=== PATIENT | male | born 1955 | race Caucasian/White ===

== ENCOUNTER 2018-05-14 07:47 | Outpatient (CLI) | payer BC ==
[2018-05-14 08:14] LABS: Estimated GFR-MDRD - POC Greater than 90
--- NOTE | 2018-05-14 09:53 | CT ---
CT ABDOMEN AND PELVIS WITH AND WITHOUT IV CONTRAST: 05/14/18 HISTORY: Recently diagnosed prostate cancer, abnormal labs. FINDINGS: There are no previous exams for comparison. The lung bases are unremarkable. There are postop changes of gastric banding. Calcified granulomas ar e seen in the liver and spleen. No hepatic mass or abnormal biliary ductal dilatation is seen. No lacey cified gallstones are noted. The pancreas and adrenal glands are normal. No calculi seen in the kidneys, ureters, or urinary bladder. No hydroureteronephrosis is noted on eit her side. Small low density lesion in the superior pole of the left kidney is most likely a cyst. No enhancing renal mass is seen on this side. Normal contrast excretion through the ureters and urinary bladder on the delayed image. The prostate is mildly enlarged. No free air, free fluid, or lymphadenopathy is seen in the abdomen or pelvis. No aneurysmal dilatatio n of the abdominal aorta is identified. There are degenerative changes in the spine. The spleen measu res 13.0 cm in length. IMPRESSION: 1. Liver and spleen granulomas. 2. Borderline splenomegaly. 3. Tiny left renal cyst. 4. No CT evidence for urinary tract calculi/obstruction or enhancing renal mass. 5. Mild prostatic enlargement. POS: [facility]
[2018-05-14] MEDS ORDERED: Iopamidol 370 76% 100 ML VIAL ONE (12:55)
--- NOTE | 2018-05-14 14:19 | NM ---
RADIONUCLIDE BONE SCAN: History: Prostate cancer. Initial staging. FINDINGS: Heterogeneous uptake throughout the skeleton. Heterogeneously increased uptake at the left knee and e ach foot and acromioclavicular joint. IMPRESSION: Arthritic changes as described above. No scintigraphic evidence of skeletal metastases. POS: [facility]
== END 2018-05-14 07:48 | disposition home or self-care (01) ==
LOC: CT 07:47
PROVIDERS: ATTEND Urology
DX: C61 Malignant neoplasm of prostate (principal); K75.3 Granulomatous hepatitis, not elsewhere classified; N28.1 Cyst of kidney, acquired; N40.0 Benign prostatic hyperplasia without lower urinary tract symptoms; M19.90 Unspecified osteoarthritis, unspecified site; D73.89 Other diseases of spleen
CPT/HCPCS: 74178; 78306; 82565; A9503

== ENCOUNTER 2018-08-27 10:44 | Outpatient (CLI) | payer BC ==
--- NOTE | 2018-08-27 13:39 | RAD ---
TWO VIEWS OF THE LEFT HIP: DATE: 08/27/2018. COMPARISON: None. HISTORY: Pain. FINDINGS: There is mild superior joint space narrowing. There is mild acetabular osteophyte formation seen lat erally on the left. There is no displaced fracture or evidence of dislocation seen. IMPRESSION: No acute osseous abnormality. POS: [facility]
== END 2018-08-27 10:45 | disposition home or self-care (01) ==
LOC: BICRAD 10:44
PROVIDERS: ATTEND Family Medicine
DX: M25.552 Pain in left hip (principal)

== ENCOUNTER 2018-09-07 09:35 | Outpatient (CLI) | payer BC ==
--- NOTE | 2018-09-07 12:38 | CT ---
CT ABDOMEN AND PELVIS PERFORMED WITH AND WITHOUT CONTRAST ENHANCEMENT: HISTORY: Prostate cancer. History of right inguinal and leg pain since radical prostatectomy done in [facility]. Also problems with incontinence. COMPARISON: CT examination from 05/14/2018. FINDINGS: ABDOMEN: The lung bases are clear of any infiltrative process. The liver and spleen are within normal limits in size. Calcified splenic granulomas are noted. The pancreas and gallbladder regions are unremarkable. A gastric band is present. There is some distal esophageal wall thickening present. The right and left adrenal glands and the right and left kidneys are normal in size. No renal calcul i. No masses. No obstruction. There is no significant periaortic or mesenteric adenopathy. PELVIS: Since our prior examination, prostatectomy changes are now noted. The bladder wall appears slightly thickened. The bladder is not fully distended at the time of this examination. Some minima l fat stranding is present. On the left side of the pelvis, located just medial to the external timbo c artery and vein, as they pass along the anterior acetabulum, is a 3.1 cm fluid density collection. It is also intimately related to the sigmoid colon at this level, but I do not believe it is of colo oz origin. There are some minimal diverticular changes if the sigmoid colon present. This fluid de nsity collection does not show any enhancement, and it is probably a postoperative collection, possib ly some type of small lymphocele or other type of postop collection. Review of osseous structures shows arthritic changes of the spine and hips. IMPRESSION: 1. Postoperative prostatectomy change. 2. Gastric band. There is distal esophageal wall thickening associated with this. 3. A 3.1 cm fluid density collection, which is seen on the left side of the pelvis. This is directl y medial to the left internal iliac vein and artery as they cross over the anterior acetabulum, near the proximal end of the inguinal canal, but this is within the pelvis itself. It also touches the si gmoid colon in this region, and I suspect this is a postoperative fluid collection, possibly a small lymphocele. 4. There is minimal sigmoid diverticulosis. 5. Bladder wall thickening. POS: [facility]
[2018-09-07] MEDS ORDERED: ISOVUE-370 76%-LOCM 1 ML ONE (16:16)
== END 2018-09-07 09:36 | disposition home or self-care (01) ==
LOC: BICCT 09:35
PROVIDERS: ATTEND Urology
DX: M79.604 Pain in right leg (principal); K57.30 Diverticulosis of large intestine without perforation or abscess without bleeding; K22.8 Other specified diseases of esophagus; N32.89 Other specified disorders of bladder; Z90.79 Acquired absence of other genital organ(s)
CPT/HCPCS: 74178; 82565

== ENCOUNTER 2022-01-13 08:59 | Outpatient (CLI) | payer MEDICARE | END 2022-01-13 09:00 | disposition home or self-care (01) | LOC: BICRAD 08:59 | PROVIDERS: ATTEND Family Medicine | DX: M54.50 Low back pain, unspecified (principal); M47.815 Spondylosis without myelopathy or radiculopathy, thoracolumbar region; M41.9 Scoliosis, unspecified | CPT/HCPCS: 72080 ==

== ENCOUNTER 2022-01-14 10:25 | Outpatient (CLI) | payer MEDICARE | END 2022-01-14 10:26 | disposition home or self-care (01) | LOC: BICRAD 10:25 | PROVIDERS: ATTEND Family Medicine | DX: M47.818 Spondylosis without myelopathy or radiculopathy, sacral and sacrococcygeal region (principal); R10.2 Pelvic and perineal pain | CPT/HCPCS: 72170; 72202 ==

== ENCOUNTER 2022-05-26 12:01 | Outpatient (CLI) | payer MEDICARE | END 2022-05-26 12:02 | disposition home or self-care (01) | LOC: MRI 12:01 | DX: D17.1 Benign lipomatous neoplasm of skin and subcutaneous tissue of trunk (principal); M54.50 Low back pain, unspecified; M51.36 Other intervertebral disc degeneration, lumbar region | CPT/HCPCS: 72148 ==

== ENCOUNTER 2022-08-04 07:48 | Outpatient (CLI) | payer MEDICARE | END 2022-08-04 07:49 | disposition home or self-care (01) | LOC: BICCT 07:48 | PROVIDERS: ATTEND Family Medicine | DX: R19.00 Intra-abdominal and pelvic swelling, mass and lump, unspecified site (principal); K29.60 Other gastritis without bleeding; K80.20 Calculus of gallbladder without cholecystitis without obstruction; K57.30 Diverticulosis of large intestine without perforation or abscess without bleeding | CPT/HCPCS: 74170; 82565 ==